=== PATIENT | female | born 1990 ===

== ENCOUNTER 2016-10-02 22:01 | Emergency (ER) | payer MEDICAID ==
[2016-10-02 22:02] VITALS: BMI 34.0
[2016-10-02 22:18] VITALS: BP 130/76; PULSE 86; RESP 17; TEMP 97.3; O2SAT 100
--- NOTE | 2016-10-02 23:17 | ED PDOC ---
HPI: Abdomen Time Seen by Provider: 10/02/16 22:56 Chief Complaint (Nursing): Abdominal Pain Chief Complaint (Provider): Right sided pelvic pain, "leaking fluid" History Per: Patient History/Exam Limitations: no limitations Onset/Duration Of Symptoms: Days Outside of [place] travel?: No Current Symptoms Are (Timing): Still Present Additional Complaint(s): PT states 4 days ago she slipped in her tube and left on right hip and right lower back. PT states she was seen in and ER and placed on monitor for approx 5 minutes. PT states when the heart beat was normal she went angela. PT states today she thinks her water broke because she is leaking clear watery fluid. Pt reprts continued right sided pain and right sided pelvic pain. Pt denies fever/chills, nausea, vomiting or diarrhea Past Medical History Reviewed: Historical Data, Nursing Documentation, Vital Signs Vital Signs: Last Vital Signs Temp 97.3 F L 10/02/16 22:14 Pulse 86 10/02/16 22:14 Resp 17 10/02/16 22:14 BP 130/76 10/02/16 22:14 Pulse Ox 100 10/02/16 22:14 - Medical History PMH: Anxiety, Migraine Denies: Diabetes, Hepatitis, HIV, HTN, Seizures, Sexually Transmitted Disease - Surgical History Surgical History: No Surg Hx - Family History Family History: States: Unknown Family Hx - Living Arrangements Living Arrangements: With Family - Social History Current smoker - smoking cessation education provided: No Alcohol: None Drugs: Denies - Immunization History Hx Tetanus Toxoid Vaccination: No Hx Influenza Vaccination: No Hx Pneumococcal Vaccination: No - Home Medications Home Medications: Ambulatory Orders Medication Instructions Recorded Penicillin VK [Pen-Vee K] 1 tab PO Q6 #28 tab 03/27/16 oxyCODONE/Acetaminophen [Percocet 1 tab PO QID PRN #15 tab 03/27/16 5/325 mg Tab] - Allergies Allergies/Adverse Reactions: Allergies Allergy/AdvReac Type Severity Reaction Status Date / Time No Known Allergies Allergy Verified 10/02/16 22:18 Review of Systems ROS Statement: Except As Marked, All Systems Reviewed And Found Negative Genitourinary Female: Positive for: Pelvic Pain Physical Exam - Reviewed Nursing Documentation Reviewed: Yes Vital Signs Reviewed: Yes - Physical Exam Appears: Positive for: Well, Non-toxic, No Acute Distress Head Exam: Positive for: ATRAUMATIC, NORMAL INSPECTION, NORMOCEPHALIC Skin: Positive for: Normal Color, Warm, DRY Eye Exam: Positive for: Normal appearance ENT: Positive for: Normal ENT Inspection Neck: Positive for: Normal, Painless ROM Cardiovascular/Chest: Positive for: Regular Rate, Rhythm Respiratory: Positive for: Normal Breath Sounds. Negative for: Accessory Muscle Use Gastrointestinal/Abdominal: Positive for: Normal Exam, Bowel Sounds, Soft, Tenderness (Right sided ) Back: Positive for: Normal Inspection Extremity: Positive for: Normal ROM Neurologic/Psych: Positive for: Alert, Oriented - ECG O2 Sat by Pulse Oximetry: 100 Medical Decision Making Medical Decision Making: Endorsed to AMARI Ruiz pending US. Disposition - Clinical Impression Clinical Impression: Abdominal pain in female - Patient ED Disposition Is Patient to be Admitted: Transfer of Care - Disposition Disposition: Transfer of Care Disposition Time: 00:00 Condition: STABLE
--- NOTE | 2016-10-03 01:44 | ED PDOC ---
- ECG O2 Sat by Pulse Oximetry: 100 - Progress ED Course And Treament: case endorsed to copywriter from Kaylen FITZPATRICK pending u/s EXAM: US Uterus, Limited CLINICAL HISTORY: 26 years old, female; Pain; Gestational age or lmp: 03/25/2017; ; Additional info: Pelvic pain, fall 4 days ago, 16 weeks TECHNIQUE: Real-time ultrasound of the maternal uterus (limited) with image documentation. COMPARISON: No relevant prior studies available. FINDINGS: Fetus: Single live intrauterine gestation. Estimated gestational age of 17 weeks 1 day by measurements. No gross anomaly is appreciated. Position: Variable. Heart rate: heart rate of 136 beats per minute. Placenta: Fundal placenta. No placenta previa or abruption. Amniotic fluid: Normal. Cervix: No cervical dilatation or effacement. Adnexa: Ovaries: Not visualized. No adnexal masses. Free fluid: No significant free fluid. IMPRESSION: 1. Single live intrauterine gestation. 2. Incidental/non-acute findings are described above. 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 Advised Tylenol PRN pain. Return to ED for worsening/concerning symptoms. Disposition - Clinical Impression Clinical Impression: Abdominal pain in female - POA Present On Arrival: None - Disposition Disposition: Routine/Home Disposition Time: 01:48 Condition: STABLE Instructions: Abdominal Pain in (ED)
--- NOTE | 2016-10-03 09:02 | US ---
PROCEDURE: Obstetrical ultrasound examination HISTORY: Pelvic pain, fall 4 days ago, 16 weeks COMPARISON: Not available TECHNIQUE: Transabdominal FINDINGS: Ultrasound examination demonstrates a single live intrauterine gestation in variable presentation. The heart rate is 136 beats per minute. A grossly normal quantity of amniotic fluid is visualized. A fundal placenta is noted. There is no evidence of placenta previa. The cervix is closed and measures 4.3 cm in length. biometry yields an ultrasound age of 17 weeks 1 day. [place] by ultrasound is 03/12/2017. anatomy was not assessed at this time. The ovaries were not visualized. No adnexal masses are seen. There is no free fluid in the cul-de-sac. IMPRESSION: Single live intrauterine gestation of approximately 17 weeks 1 day gestational age. heart rate 136. Cervix closed. No placenta previa. Variable presentation. Preliminary interpretation of this examination was reported by [employer] at 1:33 a.m. on 10/03/2016. There is concurrence of this report with the preliminary interpretation.
== END 2016-10-03 02:49 | disposition home or self-care (01) ==
LOC: H.ER 22:01
DX: O26.899 Other specified pregnancy related conditions, unspecified trimester (principal); Z3A.17 17 weeks gestation of pregnancy; F41.9 Anxiety disorder, unspecified

== ENCOUNTER 2016-11-16 23:57 | Emergency (ER) | payer MEDICAID ==
[2016-11-17 00:26] VITALS: BMI 34.3
[2016-11-17 01:05] LABS: SQUAMOUS EPITHIAL 1 /hpf (0-5); URINE BACTERIA RARE (<OCC); URINE BILIRUBIN NEGATIVE (NEGATIVE); URINE BLOOD NEGATIVE (NEGATIVE); URINE CLARITY CLEAR (Clear); URINE COLOR YELLOW (YELLOW); URINE GLUCOSE (UA) NEG (Normal); URINE LEUKOCYTE ESTERASE NEG Leu/uL (Negative); URINE NITRATE POSITIVE (NEGATIVE); URINE PROTEIN NEGATIVE (NEGATIVE); URINE UROBILINOGEN 0.2-1.0 mg/dL (0.2-1.0)
== END 2016-11-17 02:00 | disposition home or self-care (01) ==
LOC: H.EROB2 23:57
DX: O47.02 False labor before 37 completed weeks of gestation, second trimester (principal); Z3A.24 24 weeks gestation of pregnancy

== ENCOUNTER 2017-09-09 22:04 | Emergency (ER) | payer MEDICAID ==
[2017-09-09 22:05] VITALS: BMI 34.3
[2017-09-09 22:11] VITALS: RESP 18
--- NOTE | 2017-09-09 23:31 | ED PDOC ---
HPI: Abdomen Time Seen by Provider: 09/09/17 22:15 Chief Complaint (Nursing): Trauma Chief Complaint (Provider): abdominal pain History Per: Patient History/Exam Limitations: no limitations Onset/Duration Of Symptoms: Sudden Onset Current Symptoms Are (Timing): Still Present Additional Complaint(s): 27 year old female, with EGA at 16 weeks, presents to the emergency department with a complaint of left-sided abdominal pain status post fall prior to arrival. Patient states she slipped and fell down 6 steps on the stairs unto her left side. She denies any vaginal discharge or bleeding. PMD: Socorro Chiang MD Past Medical History Reviewed: Historical Data, Nursing Documentation, Vital Signs Vital Signs: Last Vital Signs Temp 97.6 F 09/09/17 22:08 Pulse 113 H 09/09/17 22:08 Resp 18 09/09/17 22:08 BP 148/84 09/09/17 22:08 Pulse Ox 97 09/09/17 23:39 - Medical History PMH: Anxiety, Migraine Denies: Diabetes, Hepatitis, HIV, HTN, Seizures, Sexually Transmitted Disease - Surgical History Surgical History: No Surg Hx - Family History Family History: States: Unknown Family Hx - Social History Current smoker - smoking cessation education provided: No Alcohol: None Drugs: Denies - Immunization History Hx Tetanus Toxoid Vaccination: No Hx Influenza Vaccination: No Hx Pneumococcal Vaccination: No - Home Medications Home Medications: Ambulatory Orders Medication Instructions Recorded Vit Calc,Iron,Folic 1 tab PO DAILY 11/17/16 [ Vitamins] Cyclobenzaprine [Cyclobenzaprine 10 mg PO TID PRN #6 tab 09/10/17 HCl] - Allergies Allergies/Adverse Reactions: Allergies Allergy/AdvReac Type Severity Reaction Status Date / Time No Known Allergies Allergy Verified 11/17/16 01:36 Review of Systems ROS Statement: Except As Marked, All Systems Reviewed And Found Negative Gastrointestinal: Positive for: Abdominal Pain (left-sided) Genitourinary Female: Negative for: Vaginal Discharge, Vaginal Bleeding Physical Exam - Reviewed Nursing Documentation Reviewed: Yes Vital Signs Reviewed: Yes - Physical Exam Appears: Positive for: Non-toxic, No Acute Distress Head Exam: Positive for: ATRAUMATIC, NORMAL INSPECTION, NORMOCEPHALIC Skin: Positive for: Normal Color Eye Exam: Positive for: Normal appearance Neck: Positive for: Normal, Painless ROM, Supple Cardiovascular/Chest: Positive for: Regular Rate, Rhythm, Other (slight tenderness to left subcoastal region). Negative for: Chest Non Tender Respiratory: Positive for: Normal Breath Sounds. Negative for: Wheezing, Respiratory Distress Gastrointestinal/Abdominal: Positive for: Soft, Tenderness (slight tenderness to left subcoastal region), Other (gravid) Back: Positive for: Other (small 2cm ecchymosis and tenderness to left buttock) Extremity: Positive for: Normal ROM (upper/lower). Negative for: Tenderness ( upper/lower), Deformity (upper/lower) Neurologic/Psych: Positive for: Alert, Oriented. Negative for: Motor/Sensory Deficits - ECG O2 Sat by Pulse Oximetry: 97 (RA) Pulse Ox Interpretation: Normal Medical Decision Making Medical Decision Making: Initial Impression: 27 year old female with abdominal pain and S/P fall Initial Plan: * Urine * Urine dipstick * Tylenol 975mg PO * UA * US OB Time: 00:29 --US OB FINDINGS: Fetus: Single live intrauterine gestation. Heart rate: heart rate of 145 beats per minute. Presentation: Transverse. Placenta: Posterior. No placenta previa or abruption. Amniotic fluid: Normal. Anatomy: No gross anomaly is appreciated. BIOMETRICS Gestational age: Estimated gestational age of 19 weeks 1 day by measurements. BR[place]: 02/02/2018 by ultrasound. EFW: Estimated weight of 275 g (greater than 97%). BPD: 4.5 cm, correlating with 19 weeks 4 days (greater than 97%). HC: 16.0 cm, correlating with 18 weeks 6 days (greater than 97%). AC: 13.8 cm, correlating with 19 weeks 2 days (greater than 97%). FL: 2.9 cm, correlating with 19 weeks 0 days (greater than 97%). MATERNAL: Uterus: Unremarkable. No myometrial mass. Cervix: No cervical dilatation or effacement. Free fluid: No free fluid. IMPRESSION: 1. Single live intrauterine gestation. Time: 0105 --Upon provider reevaluation, patient reports persistent pain to left shoulder and chest wall. Flexeril 10mg was given to patient in ED. Patient is medically stable and requires no further treatment in the ED at this time. Patient will be discharged home with Rx for Cyclobenzaprine HCL 10mg and advised to take Tylenol and limited amount of muscle relaxant PRN pain. Counseling was provided and all questions were answered regarding diagnosis. There is agreement to discharge plan. Return if symptoms persist or worsen. Clinical Impression: Shoulder and chest wall contusion S/P fall Scribe Attestation: Documented by Estrella Burger, acting as a scribe for Ankur Nelson MD. Provider Scribe Attestation: All medical record entries made by the Scribe were at my direction and personally dictated by me. I have reviewed the chart and agree that the record accurately reflects my personal performance of the history, physical exam, medical decision making, and the department course for this patient. I have also personally directed, reviewed, and agree with the discharge instructions and disposition. Disposition - Clinical Impression Clinical Impression: Contusion, abdominal wall - Patient ED Disposition Is Patient to be Admitted: No Counseled Patient/Family Regarding: Studies Performed, Diagnosis, Need For Followup, Rx Given - Disposition Disposition: Routine/Home Disposition Time: 01:05 Condition: STABLE Additional Instructions: Take Tylenol as needed for pain Follow up with your Wash Test Checker in 2 days without fail Prescriptions: Cyclobenzaprine [Cyclobenzaprine HCl] 10 mg PO TID PRN #6 tab PRN Reason: Muscle Pain Instructions: Contusion (DC) Forms: [employer] (Bengali)
--- NOTE | 2017-09-10 00:49 | US ---
EXAM: US After First Trimester, Transabdominal CLINICAL HISTORY: 27 years old, female; Pain and injury or trauma; Fall; Initial encounter; Blunt trauma; Left lower quadrant; complicated by abdominal or pelvic pain; Second trimester; Gestational age or lmp: 02/25/2018; Injury date: 08/10/2017; Injury details: S/P slip and fall 6 steps down stairs unto left side; ; Additional info: Abd pain preg TECHNIQUE: Real-time transabdominal obstetrical ultrasound of the maternal pelvis and a second or third trimester with image documentation. COMPARISON: No relevant prior studies available. FINDINGS: Fetus: Single live intrauterine gestation. Heart rate: heart rate of 145 beats per minute. Presentation: Transverse. Placenta: Posterior. No placenta previa or abruption. Amniotic fluid: Normal. Anatomy: No gross anomaly is appreciated. BIOMETRICS Gestational age: Estimated gestational age of 19 weeks 1 day by measurements. [place]: 02/02/2018 by ultrasound. EFW: Estimated weight of 275 g (greater than 97%). BPD: 4.5 cm, correlating with 19 weeks 4 days (greater than 97%). HC: 16.0 cm, correlating with 18 weeks 6 days (greater than 97%). AC: 13.8 cm, correlating with 19 weeks 2 days (greater than 97%). FL: 2.9 cm, correlating with 19 weeks 0 days (greater than 97%). MATERNAL: Uterus: Unremarkable. No myometrial mass. Cervix: No cervical dilatation or effacement. Free fluid: No free fluid. IMPRESSION: 1. Single live intrauterine gestation.
[2017-09-10 01:49] VITALS: BP 136/82; PULSE 98; TEMP 97.8; O2SAT 98
== END 2017-09-10 01:49 | disposition home or self-care (01) ==
LOC: H.ER 22:04
DX: S30.1XXA Contusion of abdominal wall, initial encounter (principal); S20.219A Contusion of unspecified front wall of thorax, initial encounter; W10.8XXA Fall (on) (from) other stairs and steps, initial encounter; Y92.89 Other specified places as the place of occurrence of the external cause; O26.899 Other specified pregnancy related conditions, unspecified trimester; F41.9 Anxiety disorder, unspecified

== ENCOUNTER 2017-09-26 03:53 | Emergency (ER) | payer MEDICAID ==
[2017-09-25 22:08] VITALS: BMI 34.3
[2017-09-25 22:18] VITALS: TEMP 98.1
--- NOTE | 2017-09-25 23:06 | ED PDOC ---
HPI: Abdomen Time Seen by Provider: 09/25/17 22:29 Chief Complaint (Nursing): Abdominal Pain Chief Complaint (Provider): abdominal pain History Per: Patient History/Exam Limitations: no limitations Onset/Duration Of Symptoms: Days Current Symptoms Are (Timing): Still Present Location Of Pain/Discomfort: Epigastric Additional History Per: Patient Additional Complaint(s): 27 y/o female, approximately 28 weeks gestation, presents with abdominal pain x 2 days. Patient states she was evaluated at [facility] ED 3 days ago for cough/ congestion was prescribed tylenol and zpak, and flonase for an upper respiratory infection. Patient states the pharmacist filled aspirin instead of tylenol and that she has been taking it every 6 hours since Sunday. Patient states nasal congestion, cough still persists despite medications. Denies fever , ear pain, chest pain, shortness of breath, palpitations, vaginal bleeding/ discharge, urinary symptoms. Past Medical History Reviewed: Historical Data, Nursing Documentation, Vital Signs Vital Signs: Last Vital Signs Temp 98.1 F 09/25/17 22:15 Pulse 94 H 09/25/17 22:15 Resp 18 09/25/17 22:15 BP 118/78 09/25/17 22:15 Pulse Ox 100 09/25/17 23:07 - Medical History PMH: Anxiety, Migraine Denies: Diabetes, Hepatitis, HIV, HTN, Seizures, Sexually Transmitted Disease - Family History Family History: States: Unknown Family Hx - Immunization History Hx Tetanus Toxoid Vaccination: No Hx Influenza Vaccination: No Hx Pneumococcal Vaccination: No - Home Medications Home Medications: Ambulatory Orders Medication Instructions Recorded Vit Calc,Iron,Folic 1 tab PO DAILY 11/17/16 [ Vitamins] Acetaminophen [Tylenol 325mg tab] 2 tab PO Q6 #50 tab 09/22/17 Azithromycin [Zithromax] 250 mg PO DAILY #4 tab 09/22/17 Fluticasone Nasal [Flonase] 1 spr NS BID #1 spr 09/22/17 Nitrofurantoin Macrocrystals 100 mg PO BID #13 cap 09/26/17 [Macrobid] - Allergies Allergies/Adverse Reactions: Allergies Allergy/AdvReac Type Severity Reaction Status Date / Time No Known Allergies Allergy Verified 09/22/17 06:26 Review of Systems ROS Statement: Except As Marked, All Systems Reviewed And Found Negative ENT: Positive for: Nose Congestion Respiratory: Positive for: Cough Gastrointestinal: Positive for: Abdominal Pain Physical Exam - Reviewed Nursing Documentation Reviewed: Yes Vital Signs Reviewed: Yes - Physical Exam Appears: Positive for: Well, Non-toxic, No Acute Distress Head Exam: Positive for: ATRAUMATIC, NORMAL INSPECTION, NORMOCEPHALIC Skin: Positive for: Normal Color Eye Exam: Positive for: Normal appearance ENT: Positive for: Normal ENT Inspection Cardiovascular/Chest: Positive for: Regular Rate, Rhythm Respiratory: Positive for: Normal Breath Sounds Gastrointestinal/Abdominal: Positive for: Bowel Sounds, Soft, Tenderness ( epigastric, llq, suprapubic, rlq). Negative for: Distended, Guarding, Rebound Back: Positive for: Normal Inspection Extremity: Positive for: Normal ROM Neurologic/Psych: Positive for: Alert, Oriented - Laboratory Results Result Diagrams: 09/25/17 23:16 09/25/17 23:16 - ECG O2 Sat by Pulse Oximetry: 100 - Progress ED Course And Treament: labs, urine, strep,flu,ob u/s EXAM: US Uterus, Limited CLINICAL HISTORY: 27 years old, female; Pain; complicated by abdominal or pelvic pain; Lower; Second trimester; Gestational age or lmp: 02/25/2018; ; Patient HX: Pain x 2days; Additional info: Abd pain TECHNIQUE: Real-time ultrasound of the maternal uterus (limited) with image documentation. 6 sets of ultrasound cine loop clips are submitted. 56 images are submitted. COMPARISON: US - OB , LIMITED 2017-09-09 23:37 FINDINGS: Gestational age: The average ultrasound age was measured at 21 weeks and 3 days. The estimated age calculated from head circumference is estimated to be 21 weeks 1 day and BPD is 21 weeks 2 days. Estimated gestational age calculated from length is estimated to be 21 weeks 4 days abdominal circumference is 21 weeks 5 days. Position: There is a ordonez fetus in the vertex presentation. Heart rate: The heart rate was measured at 138 beats per minute. Biometrics: There is heart motion. There is motion. origin seen: Stomach, bladder, are seen. Placenta: The placenta is posterior in location. No evidence of placenta previa. Amniotic fluid: There's an adequate amount of amniotic fluid. Cervix: The cervix is long and closed measuring 5.5 cm. Adnexa: The maternal ovaries are not visualized. IMPRESSION: No acute findings. Macrobid PO given for UTI Patient educated on findings, discharged with rx Macrobid. Advised to discontinue aspirin. Tylenol PRN pain/fever. nasal saline spray for congestion. Follow up panel installer in 2-3 days. Return precautions given Patient sent up to OB-ED for monitoring Disposition - Clinical Impression Clinical Impression: Abdominal pain in , UTI (lower urinary tract infection), URI (upper respiratory infection) - Patient ED Disposition Is Patient to be Admitted: No Counseled Patient/Family Regarding: Studies Performed, Diagnosis, Need For Followup, Rx Given - Disposition Disposition: Routine/Home Disposition Time: 03:02 Condition: STABLE Prescriptions: Nitrofurantoin Macrocrystals [Macrobid] 100 mg PO BID #13 cap Instructions: Urinary Tract Infections in Adults, Viral Upper Respiratory Infection, Adult (DC), Round Ligament Pain Forms: [employer] (Taiwanese)
[2017-09-25 23:45] LABS: SQUAMOUS EPITHIAL 5 /hpf (0-5); URINE BACTERIA RARE (<OCC); URINE BILIRUBIN NEGATIVE (NEGATIVE); URINE BLOOD NEGATIVE (NEGATIVE); URINE CLARITY SLIGHTY-CLOUDY (Clear); URINE COLOR STRAW (YELLOW); URINE GLUCOSE (UA) NEG (Normal); URINE LEUKOCYTE ESTERASE MOD Leu/uL (Negative); URINE PROTEIN NEGATIVE (NEGATIVE); URINE UROBILINOGEN 0.2-1.0 mg/dL (0.2-1.0)
[2017-09-25 23:47] LABS: BASO % 0.2 % (0.0-2.0); EOS # 0.1 K/uL (0.0-0.7); EOS % 1.3 % (0.0-4.0); HEMOGLOBIN 10.9 g/dL (12.0-16.0); LYMPH % 21.9 % (20.0-40.0); MEAN CELL VOLUME 86.5 fl (81.0-99.0); MEAN CORPUSCULAR HEMOGLOBIN 29.4 pg (27.0-31.0); MEAN PLATELET VOLUME 7.2 fl (7.2-11.7); MONO # 0.6 K/uL (0.0-0.8); MONO % 6.1 % (0.0-10.0); NEUT # 6.5 K/uL (1.8-7.0); NEUT % 70.5 % (50.0-75.0); RBC 3.69 Mil/uL (3.80-5.20); WHITE BLOOD COUNT 9.2 K/uL (4.8-10.8)
[2017-09-25 23:58] LABS: ALB/GLOB RATIO 0.9 (1.0-2.1); ALBUMIN 3.4 g/dL (3.5-5.0); ALT/SGPT 31 U/L (9-52); AST/SGOT 34 U/L (14-36); BLOOD UREA NITROGEN 7 mg/dl (7-17); CALCIUM 8.7 mg/dL (8.4-10.2); GFR AFRICAN-AMERICAN > 60; GFR NON-AFRICAN AMERICAN > 60
--- NOTE | 2017-09-26 02:33 | US ---
EXAM: US Uterus, Limited CLINICAL HISTORY: 27 years old, female; Pain; complicated by abdominal or pelvic pain; Lower; Second trimester; Gestational age or lmp: 02/25/2018; ; Patient HX: Pain x 2days; Additional info: Abd pain TECHNIQUE: Real-time ultrasound of the maternal uterus (limited) with image documentation. 6 sets of ultrasound cine loop clips are submitted. 56 images are submitted. COMPARISON: US - OB , LIMITED 2017-09-09 23:37 FINDINGS: Gestational age: The average ultrasound age was measured at 21 weeks and 3 days. The estimated age calculated from head circumference is estimated to be 21 weeks 1 day and BPD is 21 weeks 2 days. Estimated gestational age calculated from length is estimated to be 21 weeks 4 days abdominal circumference is 21 weeks 5 days. Position: There is a ordonez fetus in the vertex presentation. Heart rate: The heart rate was measured at 138 beats per minute. Biometrics: There is heart motion. There is motion. origin seen: Stomach, bladder, are seen. Placenta: The placenta is posterior in location. No evidence of placenta previa. Amniotic fluid: There's an adequate amount of amniotic fluid. Cervix: The cervix is long and closed measuring 5.5 cm. Adnexa: The maternal ovaries are not visualized. IMPRESSION: No acute findings.
[2017-09-26 03:20] VITALS: RESP 20; O2SAT 99
[~2017-09-26 03:53] MED LIST: Famotidine 20mg/50ml 20 MG/50 ML BAG IVPB ONE; Famotidine 20mg/50ml Premix IVPB STA
--- NOTE | 2017-09-26 04:48 | OBHP ---
Datetime: 09/26/2017 04:38 IP Chief Complaint Other: pelvic pressure Admit Comment, IP Provider: 27yo edc 02/25 by 12wk us goes to [facility] for pnc. She eval uated in ED for f/u eval of URI seen in [facility] ED earlier this wk for uri and given flonase, zithroma x and advised to take tylenol. she presents to [facility] /w c/o intermittent pelvic pressure. denies vag d/c , irritation, srom, vag b leeding. pmhx: denies obhx: x5; eab @ 8wks x1 nkda medic: flonase, zithromax, pnv. given rx for asa by pharm when pt states [facility] ED told her to take tylenol. pt knows she is not t o take asa shx: denies etoh, tobacco or illicit drug i: 18.2wks no evidence of threatened ab uri p: d/c home uri plan per [facility] ed and [facility] ed. f/u in ob clinic within 1wk. Pelvic Type - PN: Adequate Extremities - PN: Normal Heart - PN: Normal Neurologic - PN: Normal HEENT - PN: Normal General - PN: Normal FHR - Baseline A Provider: 140 EGA AdmitDate IP: 18.2 IP Chief Complaint: Other Dilatation, Provider: 0 Effacement, Provider: 0 Station, Provider: floating Genitourinary Exam: Normal
[2017-09-26 09:10] VITALS: BP 108/67; PULSE 87
== END 2017-09-26 04:50 | disposition home or self-care (01) ==
LOC: H.EROB2 03:53 → H.L&D 03:56 → H.EROB2 04:50
DX: O26.92 Pregnancy related conditions, unspecified, second trimester (principal); J06.9 Acute upper respiratory infection, unspecified; Z3A.18 18 weeks gestation of pregnancy